=== PATIENT | female | born 1975 | race African-American/Black ===

== ENCOUNTER 2017-02-26 23:32 | Inpatient (IN) | payer OTHER, SELFPAY ==
[2017-02-27 00:51] LABS: ALT (SGPT) 26 U/L (8-55); AST (SGOT) 90 U/L (5-34); Albumin 3.2 g/dL (3.5-5.0); Alkaline Phosphatase 102 U/L (40-150); Anion Gap 15 mmol/L (10-20); BUN (Urea Nitrogen) 22 mg/dL (7.0-18.7); Bilirubin, Total 0.6 mg/dL (0.2-1.2); Calc. Creatinine Clearance 0 mL/min (70-130); Calcium 8.1 mg/dL (7.8-10.44); Carbon Dioxide 29 mmol/L (22-29); Chloride 96 mmol/L (98-107); Estimated GFR-MDRD 78; Globulin 4.1 g/dL (2.4-3.5); Glucose 229 mg/dL (70-105); Potassium 3.4 mmol/L (3.5-5.1); Protein, Total 7.3 g/dL (6.0-8.3); Sodium 137 mmol/L (136-145)
[2017-02-27 00:52] LABS: Hemoglobin 15.3 g/dL (12.0-16.0); Mean Corpuscular HGB CONC 32.5 g/dL (32.0-36.0); Mean Corpuscular Hemoglobin 31.6 pg (27.0-31.0); Mean Corpuscular Volume 97.1 fl (81.0-99.0); RBC Distribution Width 13.9 % (11.5-14.5); Red Blood Cell (RBC) Count 4.85 mill/uL (4.20-5.40); White Blood Cell (WBC) Count 6.6 thou/uL (4.8-10.8)
[2017-02-27 01:08] LABS: Band 5 % (5-11); Lymphocytes 22 % (21-51); MDiff Complete? YES; Mean Platelet Volume 9.7 fL (7.4-10.4); Monocytes 4 % (0-10); Neutrophil 69 % (42-75); Nucleated RBC 1 % (0); PLT Morphology Comment Appears Decreased; Platelet Count 103 thou/uL (130-400)
[2017-02-27] MEDS ORDERED: Acetaminophen 500 MG TAB ONE (02:02)
[2017-02-27 02:19] LABS: BHCG - Serum Negative (NEGATIVE); Pregs Control Background? CLEAR/WHITE (CLR/WHITE); Pregs Control Bar Appear? YES (CONTROL BAR)
[2017-02-27 02:41] LABS: CKMB 1.2 ng/mL (0-6.6)
[2017-02-27 02:55] LABS: Troponin I 0.367 ng/mL (< 0.028)
[2017-02-27] MEDS ORDERED: Azithromycin 500 MG in Sodium Chloride 0.9% 250 ML 250 ML IVPB SCH (03:30)
[2017-02-27] MEDS ORDERED: Lorazepam 2 MG/ML VIAL ONE (03:59)
[2017-02-27] MEDS ORDERED: Enoxaparin Sodium 60 MG/0.6 ML SYRINGE ONE (04:40)
[2017-02-27] MEDS ORDERED: Furosemide 40 MG/4 ML VIAL ONE (04:40)
[2017-02-27] MEDS ORDERED: Enoxaparin Sodium 80 MG/0.8 ML SYRINGE ONE (04:40)
[2017-02-27 06:30] LABS: Troponin I 0.293 ng/mL (< 0.028)
[2017-02-27] MEDS ORDERED: Milk Of Magnesia 30 ML UDCUP PO PRN (07:22)
[2017-02-27] MEDS ORDERED: Loratadine 10 MG TAB PO PRN (07:22)
[2017-02-27] MEDS ORDERED: Ondansetron HCl/PF 4 MG/2 ML Vial IVP PRN (07:22)
[2017-02-27] MEDS ORDERED: Diabetic Tussin 200 MG/10 ML UDCUP PO PRN (07:22)
[2017-02-27] MEDS ORDERED: Sodium Chloride 0.65% Nasal 44 ML BOT EA NARE PRN (07:22)
[2017-02-27] MEDS ORDERED: Chloraseptic Spray 180 ml Bottle PO PRN (07:22)
[2017-02-27] MEDS ORDERED: Eucerin (Mineral Oil/Petrolatum,White) 30 gm Jar TOP PRN (07:22)
[2017-02-27] MEDS ORDERED: Senokot 8.6 MG TAB PO PRN (07:22)
[2017-02-27] MEDS ORDERED: Mag-Al 1200 mg/1200 mg/30 ML UDCUP PO PRN (07:22)
[2017-02-27] MEDS ORDERED: Ondansetron ODT 4 MG TAB PO PRN (07:22)
[2017-02-27] MEDS ORDERED: Loperamide HCl 2 MG CAP PO PRN (07:22)
[2017-02-27] MEDS ORDERED: Artificial Tears 18 DROP/0.9 ML EA EYE PRN (07:22)
[2017-02-27 07:52] LABS: Hemoglobin A1c 5.7 % (4.0-6.0)
[2017-02-27] MEDS ORDERED: Potassium Chloride 20 MEQ TAB PO SCH (08:00)
[2017-02-27 08:03] LABS: Lactic Acid 1.9 mmol/L (0.5-2.2)
[2017-02-27 08:07] LABS: Cardiac Risk 5.2 (Less than 4.5); Magnesium 2.5 mg/dL (1.6-2.6)
--- NOTE | 2017-02-27 08:14 | RAD ---
PORTABLE CHEST: Date: 02-27-17 History: Neck pain, face pain, ear pain. Feeling tired. Cough. Comparison: 04-28-15 FINDINGS: There has been interval development of multifocal areas of alveolar opacity and consolidation within the midlung zones and at each lung base with findings greater on the right, likely related to multifo gallo pneumonia. Atypical pneumonia cannot be excluded. Cardiac silhouette is magnified by projection. Osseous structures are intact. IMPRESSION: 1. Findings likely related to multifocal pneumonia. An atypical pneumonia cannot be excluded. Follow up to resolution is recommended. POS: [facility]
[2017-02-27] MEDS ORDERED: Dextrose 50% Abboject 50 ML SYRINGE SLOW IVP PRN (08:34)
[2017-02-27] MEDS ORDERED: HumaLOG 300 UNITS/3 ML VIAL SC PRN (08:34)
[2017-02-27] MEDS ORDERED: Dextrose 5% in Water 1,000 ML IV PRN (08:34)
--- NOTE | 2017-02-27 09:31 | CT ---
PRELIMINARY REPORT/[facility]/EMERGENCY AFTER HOURS PROCEDURE: EXAM: CT Angiography Chest With Intravenous Contrast CLINICAL HISTORY: 41 years old, female; Signs and symptoms; Shortness of breath; Patient HX: SOB, R/O pe TECHNIQUE: Axial computed tomographic angiography images of the chest with intravenous contrast using pulmonary embolism protocol. CONTRAST: 100 mL of ISOVUE administered intravenously. COMPARISON: No relevant prior studies available. FINDINGS: Pulmonary arteries: No pulmonary embolism. Aorta: No acute findings. No thoracic aortic aneurysm. Lungs: Multifocal consolidation bilaterally and groundglass opacities with mild interstitial thickeni ng in the upper lobes Pleural space: No significant effusion. No pneumothorax. Heart: Moderate cardiomegaly. Coronary calcifications No significant pericardial effusion. No evidenc e of RV dysfunction. Bones/joints: No acute fracture. No dislocation. Soft tissues: Unremarkable. Lymph nodes: Mild hilar adenopathy. Question mild distal esophageal thickening IMPRESSION: No definite pulmonary embolism. Bilateral pneumonia Moderate cardiomegaly. Coronary artery disease Question mild distal esophagitis Thank you for allowing us to participate in the care of your patient. Dictated and Authenticated by: Aj Yepez MD 02/27/2017 5:23 AM Central Time ([place] & [place]) FINAL REPORT EMERGENCY AFTER HOURS CT ARTERIOGRAM CHEST WITH IV CONTRAST AND 3D MIP IMAGING: Date: 02/27/17 Time: 0432 hours HISTORY: Chest pain. Dyspnea. FINDINGS: No comparison. Findings agree with the preliminary report by Yannick. There is no CT evidence of pulmona ry embolus. Pulmonary vascular congestion with dense bilateral infiltrates are as detailed in the royce ginal report. Findings could be related to bilateral pneumonia. Clinical correlation regarding other signs and symptoms of an infectious process is required. POS: [facility]
[2017-02-27 09:39] LABS: Troponin I 0.194 ng/mL (< 0.028)
[2017-02-27] MEDS ORDERED: ISOVUE-370 76%-LOCM 1 ML ONE (09:43)
--- NOTE | 2017-02-27 10:47 | CON ---
DATE OF CONSULTATION: 02/27/2017 REASON FOR CONSULTATION: Elevated troponin. HISTORY OF PRESENT ILLNESS: Ms. Gaspar is a 41-year-old woman who has not been seen or evaluated b y Cardiology in the past. She recently presented with increased shortness of breath over a week. He r delores states he recently had a URI. She states she has had fevers and chills while at home. Her shortness of breath became such that she proceeded to the emergency room. CT scan did confirm likel y bilateral pneumonia. She is currently on BiPAP, required for desaturation. She denies any chest p ain or pressure. She has no previous history of underlying coronary disease. PAST MEDICAL HISTORY: Hypertension, acid reflux, morbid obesity. ALLERGIES: None. MEDICATIONS: None. SOCIAL HISTORY: Positive alcohol use. Positive tobacco use. She is not . REVIEW OF SYSTEMS: Ten point review of systems was reviewed and negative. PHYSICAL EXAMINATION: VITAL SIGNS: Blood pressure 120/70, pulse 85, respirations 20. GENERAL: Patient is a pleasant female who is in no acute distress. The patient appears her stated ag e. NEUROLOGIC: The patient is alert and oriented times 3 with no focal neurologic deficits. HEENT: Sclerae without icterus. Mouth has moist mucous membranes with normal pallor. NECK: No JVD. Carotid upstroke brisk. No bruits bilaterally. LUNGS: Currently on BiPAP. BACK: No scoliosis or kyphosis. CARDIAC: Regular rate and rhythm with normal S1 and S2. No S3 or S4 noted. No significant rubs, mur murs, thrills, or gallops noted throughout the precordium. PMI is not displaced. There is no parast ernal heave. ABDOMEN: Soft, nontender, nondistended. No peritoneal signs present. No hepatosplenomegaly. No abn ormal striae. EXTREMITIES: 2+ femoral and 2+ dorsalis pedis pulses. No cyanosis, clubbing, or edema. SKIN: No gross abnormalities. PERTINENT LABORATORY: White blood cell count 6.6, hemoglobin 15.3. Peak troponin 0.293 and is decreasing to 0.194. EKG: Normal sinus rhythm with no ST wave changes suggesting ischemia. IMPRESSION: 1. Elevated troponin. 2. Pneumonia. 3. Hypoxia. RECOMMENDATIONS: Elevated troponin, likely demand ischemia. I would recommend conservative approach . Continue with BiPAP. She will need to be placed on antibiotic therapy. Pulmonary has been involv ed. We will avoid beta tiffani therapy currently due to overlapping reactive airway disease.
[2017-02-27] MEDS ORDERED: Potassium Chloride 20 MEQ TAB ONE (10:48)
[2017-02-27] MEDS ORDERED: Aspirin 325 MG TAB ONE (10:48)
[2017-02-27] MEDS ORDERED: Famotidine/PF 20 mg/2ml Vial ONE (10:48)
[2017-02-27] MEDS ORDERED: VANCOMYCIN IVPB PRN (11:23)
[2017-02-27 12:40] VITALS: BMI 55.0
--- NOTE | 2017-02-27 12:45 | HP ---
PRIMARY CARE PHYSICIAN: City call admission. REASON FOR ADMISSION: Acute hypoxic respiratory failure, multifocal community-acquired pneumonia, se psis with acute organ dysfunction, demand ischemia of myocardium. HISTORY OF PRESENT ILLNESS: A 41-year-old female who has underlying history of morb id obesity as well as history of hypertension who was brought to the emergency room with multiple com plaints including cough, shortness of breath, ear pain, chest pain, shortness of breath, fever and ge neralized headache and body ache. The patient's is present at bedside who reports that he was sick and having upper respiratory infection. He recovered and after that the patient got symptoms. She was not improving very quickl y. She is having upper respiratory symptoms for about a week. For the last 2-3 days the patient is becoming more and more weak and she was having an increasing amount of cough, fever, chills, headache and body ache. The patient was subjectively feeling day by day worse and that is why last night the patient was brought to the emergency room. In the emergency room, initially she was tachycardic, tachypneic, and hypoxic. She was saturating 68 % on room air. This patient's chest x-ray showed multifocal infiltration. Subsequently the patient also had CT angio which was negative for pulmonary embolism. Her D-dimer was significantly evaluated . Her platelet count is low. She has bandemia and she has elevated troponins. She denies any angin a. She denies any night-time snoring. She denies any dyspnea on exertion. She denies any chest radha n on exertion. She denies any palpitations, syncope, dizziness. The patient's symptomatology is only for the last 7-10 days, before that, she was up to her normal. She never required any hospitalizations. In the emergency room, CT angio was negative for pulmonary embolism, but it showed multifocal infiltr ation. The patient required BiPAP and with BiPAP the patient was maintaining her saturation and she was more comfortable. We are admitting this patient in IMCU. REVIEW OF SYSTEMS: The following complete review of systems was negative, unless otherwise mentioned in the HPI or below: Constitutional: Weight loss or gain, ability to conduct usual activities. Skin: Rash, itching. Eyes: Double vision, pain. ENT/Mouth: Nose bleeding, neck stiffness, pain, tenderness. Cardiovascular: Palpitations, dyspnea on exertion, orthopnea. Respiratory: Shortness of breath, wheezing, cough, hemoptysis, fever or night sweats. Gastrointestinal: Poor appetite, abdominal pain, heartburn, nausea, vomiting, constipation, or diarrhea. Genitourinary: Urgency, frequency, dysuria, nocturia. Musculoskeletal: Pain, swelling. Neurologic/Psychiatric: Anxiety, depression. Allergy/Immunologic: Skin rash, bleeding tendency. Please see my HPI for pertinent positives and negatives. All other review of system reviewed and neg ative except as mentioned in the HPI. PAST MEDICAL HISTORY: Morbid obesity, hypertension. ALLERGIES: No known drug allergies. CURRENT HOME MEDICATIONS: Lisinopril 10 mg p.o. daily. PAST SURGICAL HISTORY: Reviewed and negative. PAST PSYCHIATRIC HISTORY: Reviewed and negative. SOCIAL HISTORY: The patient is and lives at home with her . She drinks alcohol 2-3 t imes per week. She smokes about half pack per day. She abuses marijuana periodically. She lives at home. She denies any other illicit drug abuse. FAMILY HISTORY: No strong family history of premature coronary artery disease, stroke or cancer, but her recently suffered from upper respiratory flu-like illness. EMERGENCY ROOM COURSE: The patient is given Levaquin 750 mg, Pepcid 20 mg, aspirin 324 mg and potass ium chloride 40 mEq, Lovenox 40 mg subcutaneous, Lasix 40 mg IV, azithromycin 500 mg, Ativan 1 mg, Ro cephin 1 gram, Tylenol 1 gram and DuoNeb therapy. PHYSICAL EXAMINATION: VITAL SIGNS: Most recently in the emergency room, blood pressure on admission 119/78, pulse 102, res piratory rate 24, temperature 97.7, saturation 68% on room air, weight 141.07 kilograms. GENERAL: The patient is currently alert, awake, on BiPAP, mild respiratory distress. HEENT: Head normocephalic, atraumatic. Eyes: Pupils round, reactive to light. Extraocular muscle intact. ENT: Oropharynx within normal limits. Moist mucous membranes. No oral lesions. No pharyn geal erythema, no exudate. NECK: Supple, no JVD, no thyromegaly, no carotid bruit. LUNGS: Air entry significantly reduced on both sides, scattered rales noted, end expiratory wheezing heard throughout the lungs. CARDIAC: S1, S2 regular, tachycardia, no murmur, no gallop, no rub. ABDOMEN: Morbid obesity present. Bowel sounds present. Nontender, nondistended. No organomegaly, no mass, no suprapubic tenderness. BACK: Unremarkable, no CVA tenderness. EXTREMITIES: Upper extremity passive movement of all joints are normal. Lower extremities: No eddie a. Good peripheral pulsation. No calf tenderness. Distal pulsation intact. SKIN: No skin rash. HEMATOLOGICAL: No lymphadenopathy. PSYCHIATRIC: Normal affect. NEUROLOGIC: Nonfocal examination. The patient moves all 4 limbs. Plantar bilateral flexor. SIGNIFICANT LABS: EKG showing sinus arrhythmia, slightly prolonged QT interval. Chest x-ray showing multifocal infiltration. CT angio consistent with multifocal infiltration, cardiomegaly, distal eso phagitis, no evidence of pulmonary embolism. CBC: WBC 6.6, hemoglobin 15.3, platelet 103, bandemia. D-dimer greater than 20. BMP: Sodium 137, potassium 3.4, chloride 96, carbon dioxide 29, anion gap 15, BUN 22, creatinine 0.9 6, glucose 229, calcium 8.1, hemoglobin A1c 5.7. AST 90, ALT 20, alkaline phosphatase 102, albumin 3.2. CK-MB 1.2, troponin 0.367 and then 0.293. Triglyceride 226, cholesterol 141, LDL 69, HDL 27. test negative. TSH 5.47, magnesium 2.5 . Influenza A and B negative. ASSESSMENT AND PLAN: 1. Acute respiratory failure with hypoxia. This patient was saturating 68% on room air. She was no t maintaining oxygen saturations with nasal cannula and nonrebreather in the emergency room, she requ ired BiPAP. Currently, she is maintaining saturation with BiPAP. We will continue to titrate and we an off BiPAP as needed. Meanwhile, we will continue with oxygen to keep saturation above 92%. Most reason for her hypoxic respiratory failure is underlying multifocal pneumonia. 2. Multifocal community-acquired pneumonia. The patient had problem with viral illness. At this po int her influenza screen is negative. Given her severity of illness we will treat her with Rocephin 2 gram IV daily, Levaquin 750 mg IV daily, and vancomycin as per pharmacy adjusted dose, Mucinex 600 mg p.o. twice daily, DuoNeb therapy every 4 hourly and Solu-Medrol 20 mg IV q.8h. We will monitor cl inical response. We will narrow down antibiotic spectrum in the next 24-48 hours. We will closely m onitor in CCU. Pulmonary is consulted. 3. Demand ischemia of myocardium. This patient has significantly abnormal troponin. She does not h ave any angina prior to this, most likely related with hypoxic respiratory failure and her stress fro m pneumonia. This patient already evaluated by Cardiology. We will obtain echocardiography. We joanne cked lipid profile which is at target. We will continue the aspirin 325 mg p.o. daily, current tropo wilmer elevation is related with demand ischemia. 4. Sepsis with acute organ dysfunction. This patient has bandemia, hypoxic respiratory failure and demand ischemia of myocardium and source of infection is pneumonia. We will closely monitor in IMCU. 5. Thrombocytopenia likely related with sepsis. We will continue with DVT prophylaxis with Lovenox and will repeat CBC tomorrow. If platelet count drops, then will consider discontinuing Lovenox ther apy. 6. Morbid obesity. Doubt this patient has any sleep apnea because she is not providing any sleep ap som history, but outpatient sleep study is advised and weight loss advised. 7. Elevated D-dimer, but negative CT angio for PE, most likely D-dimer is elevated related with a pa rt of sepsis. 8. History of hypertension. Currently, the patient is having low blood pressure and that is why we will hold on antihypertensive medication. 9. Hypokalemia. Magnesium checked which is normal, we will replace potassium chloride 40 mEq p.o. 1 time dose. 10. Hyperglycemia without previous history of diabetes. Hemoglobin A1c checked which is normal. Th e patient is advised weight loss. We will monitor Accu-Cheks while in hospital. 11. Deep venous thrombosis prophylaxis. Lovenox 40 mg subcu daily. 12. Gastrointestinal prophylaxis, Pepcid 20 mg IV b.i.d. 13. Distal esophagitis and gastroesophageal reflux disease. The patient will need Pepcid or Protoni x upon discharge. Dietary education given. Disposition plan based on clinical course. We are expecting patient's stay in hospital more than 2 m idnights. Plan of care discussed with the patient and family member at bedside in the emergency room .
[2017-02-27] MEDS ORDERED: FLU VACC QS2017-18 36 mo. & older 0.5 ML SYRINGE IM ONE (13:30)
[2017-02-27] MEDS: Acetaminophen 325 MG TAB PO PRN (15:04)
[2017-02-27] MEDS: Aspirin 325 MG TAB PO SCH (15:22)
[2017-02-27] MEDS: Famotidine/PF 20 mg/2ml Vial SLOW IVP SCH ×2 (15:22→20:26)
[2017-02-27] MEDS: Enoxaparin Sodium 40 MG/0.4 ML SYRINGE SC SCH (15:22)
[2017-02-28] MEDS: cefTRIAXone\\ROCEPHIN 2 GM in Sodium Chloride 0.9% 100 ML IVPB SCH (01:56)
--- NOTE | 2017-02-28 04:36 | CON ---
DATE OF CONSULTATION: 02/27/2017 HISTORY OF PRESENT ILLNESS: Sofia Gaspar is a 41-year-old female. She presented with cough, ch est congestion, shortness of breath, and subjective fever. Her illness started after her rec overed from his illnesses. She has been progressively getting worse for the last 3 days. By his history, he was in the room whe n I evaluated her. Apparently in the emergency department, she was placed on noninvasive ventilation. This has been wea ryan to a cannula after she got into the Intermediate Care Unit. I actually after reviewing her radio graph very surprising that she was able to wean to the nasal cannula. Given her size, I suspect she has sleep apnea, recommended the nursing staff that she sleep with Lobo eng. PAST MEDICAL HISTORY: Remarkable for hypertension. SOCIAL HISTORY: She is a smoker, half pack a day. She uses marijuana. She drinks several times a w makah. She lives at home with her . ALLERGIES: She reports no drug allergies. She is only on lisinopril prior to admission. REVIEW OF SYSTEMS: Ten point otherwise is negative. PHYSICAL EXAMINATION: GENERAL: She is actually lying on her right side, sleeping, and in no distress. She is afebrile. S he is awake. VITAL SIGNS: Heart rate was in the 70s, respiratory rate was in the 20, oximetry is 92 on 4 liters, blood pressure this evening is 153/103. HEENT: Pupils are equal. Sclerae are anicteric. NECK: Supple. Throat is clear. LUNGS: Remarkable for coarse rhonchi at both bases. HEART: Regular rhythm, no S3. S1 and S2 are distant because of her size. ABDOMEN: Soft and nontender. EXTREMITIES: Without clubbing, cyanosis, or edema. LABORATORY DATA: White count 6.6, hemoglobin 15.3, platelets 103,000. Sodium 137, potassium 3.4, ch loride 96, bicarbonate 29, BUN 22, creatinine 0.96. Troponins are 0.36 and 0.29. Albumin is 3.2. There is no urinalysis done. IMPRESSION: Community-acquired pneumonia, likely after a viral illness with both her and her have shared. Surprisingly, she was able to wean off noninvasive ventilation after I reviewed her radiograph. She does have patchy bilateral alveolar infiltrates. Hopefully, she will continue to improve on her curr ent antimicrobial therapy. We will be happy to follow with the other physicians caring for her, met with her and answered all of her 's questions. This was a 70-minute consult of which 50% was spent coordinating care on t he unit reviewing radiographs, reviewing available records, reviewing old records, and reviewing lab work.
[2017-02-28 05:18] LABS: ALT (SGPT) 18 U/L (8-55); AST (SGOT) 43 U/L (5-34); Albumin 3.1 g/dL (3.5-5.0); Alkaline Phosphatase 87 U/L (40-150); Anion Gap 13 mmol/L (10-20); BUN (Urea Nitrogen) 12 mg/dL (7.0-18.7); Bilirubin, Total 0.4 mg/dL (0.2-1.2); Calc. Creatinine Clearance 216 mL/min (70-130); Calcium 7.6 mg/dL (7.8-10.44); Carbon Dioxide 30 mmol/L (22-29); Chloride 97 mmol/L (98-107); Estimated GFR-MDRD Greater than 90; Globulin 3.7 g/dL (2.4-3.5); Glucose 199 mg/dL (70-105); Potassium 3.9 mmol/L (3.5-5.1); Protein, Total 6.8 g/dL (6.0-8.3); Sodium 136 mmol/L (136-145)
[2017-02-28 05:49] LABS: Band 4 % (5-11); Hemoglobin 13.8 g/dL (12.0-16.0); Lymphocytes 23 % (21-51); MDiff Complete? YES; Mean Corpuscular HGB CONC 32.4 g/dL (32.0-36.0); Mean Corpuscular Hemoglobin 31.8 pg (27.0-31.0); Mean Corpuscular Volume 98.1 fl (81.0-99.0); Monocytes 3 % (0-10); Neutrophil 70 % (42-75); PLT Morphology Comment Appears Decreased; Platelet Count 111 thou/uL (130-400); RBC Distribution Width 13.8 % (11.5-14.5); Red Blood Cell (RBC) Count 4.33 mill/uL (4.20-5.40); White Blood Cell (WBC) Count 4.2 thou/uL (4.8-10.8)
[2017-02-28] MEDS: Aspirin 325 MG TAB PO SCH (09:35)
[2017-02-28] MEDS: Famotidine/PF 20 mg/2ml Vial SLOW IVP SCH ×2 (09:35→21:05)
[2017-02-28] MEDS: Enoxaparin Sodium 40 MG/0.4 ML SYRINGE SC SCH (09:35)
[2017-02-28] MEDS ORDERED: hydrALAZINE 25 MG TAB PO PRN (11:24)
--- NOTE | 2017-02-28 11:33 | PDOC.PN ---
- Subjective Encounter Start Date: 02/28/17 Encounter Start Time: 11:32 Ms. Gaspar was seen today in follow-up of Pneumonia. she says she is breathing a little better, but still has chest pain when she breathes, and gets extremely fatigued when minimal activity. - Objective Resuscitation Status: Resuscitation Status FULL:Full Resuscitation MAR Reviewed: Yes Vital Signs & Weight: Vital Signs (12 hours) Temp Pulse Resp BP BP Pulse Ox 02/28/17 11:00 98.2 F 82 24 H 142/107 H 93 L 02/28/17 08:46 97 02/28/17 08:44 75 21 H 99 02/28/17 08:00 98.0 F 75 21 H 02/28/17 07:45 97.4 F L 73 18 144/101 H 92 L 02/28/17 03:30 98.0 F 87 25 H 146/105 H 96 02/28/17 02:22 63 02/27/17 23:40 97.0 F L 65 18 142/101 H 92 L Weight Weight 305 lb 8 oz I&O: 02/27/17 02/28/17 03/01/17 06:59 06:59 06:59 Intake Total 2620 Output Total 450 Balance 2170 Result Diagrams: 02/28/17 03:50 02/28/17 03:50 Additional Labs: Accuchecks 02/28/17 02/28/17 02/27/17 10:35 06:22 20:27 POC Glucose 212 H 174 H 186 H 02/27/17 16:56 POC Glucose 153 H Phys Exam - Physical Examination HEENT: PERRLA + rales bilaterally Cardiovascular: RRR, no significant murmur, no rub Gastrointestinal: soft, non-tender, positive bowel sounds Musculoskeletal: no edema Dx/Plan (1) Community acquired bacterial pneumonia Code(s): J15.9 - UNSPECIFIED BACTERIAL PNEUMONIA Status: Acute (2) Hypertension Code(s): I10 - ESSENTIAL (PRIMARY) HYPERTENSION Status: Acute (3) Obesity, morbid, BMI 50 or higher Code(s): E66.01 - MORBID (SEVERE) OBESITY DUE TO EXCESS CALORIES Status: Acute - Plan * Pneumonia- she has had some improvement overnight * Continue IV antibiotics- these can likely be de-escalated soon * HTN- - not optimally controlled -will re-start Lisinopril-HCT- and will add Hydrala RN. * Can reduce steroid dose * Elevated blood glucose- ? related to steroids- she will need outpatient screen for diabetes once she is stable
[2017-02-28] MEDS: Lisinopril/Hydrochlorothiazide 20 mg/12.5 mg Tablet PO SCH (12:57)
[2017-02-28] MEDS: HumaLOG 300 UNITS/3 ML VIAL SC PRN (12:58)
[2017-02-28] MEDS: hydrALAZINE 20 MG/ML VIAL SLOW IVP PRN ×2 (17:08→22:34)
--- NOTE | 2017-02-28 19:11 | PRG ---
DATE OF SERVICE: 02/28/2017 SUBJECTIVE: Ms. Gaspar is doing well. She is off BiPAP. She continues to have shortness of breat h, but has improved first on 02/27/2017. OBJECTIVE: LUNGS: Rhonchi and rales bilaterally. CARDIAC: Regular rate and rhythm. ABDOMEN: Soft, nontender, nondistended. She is obese. EXTREMITIES: No edema. IMPRESSION: 1. Elevated troponin. 2. Mild cardiomyopathy. 3. Bilateral pneumonia. RECOMMENDATIONS: Ms. Gaspar appears stable. Her respiratory status is improved. Continue antibio tic therapy and respiratory support. Her LVEF is lower limits of normal and likely related to a rece nt pneumonia. Her elevated troponin is likely demand ischemia. We would not recommend any further t herapy or treatment.
--- NOTE | 2017-02-28 21:56 | PRG ---
DATE OF SERVICE: 02/28/2017 SUBJECTIVE: Sofia Gaspar did well overnight, she enjoyed sleeping with theBiPAP. OBJECTIVE: VITAL SIGNS: Blood pressure this evening is 155/89, respiratory rate 22, oximetry is 91 on 5 liters, heart rates in 60. She is afebrile. LUNGS: Remarkable for crackles at both bases today. HEART: Regular rhythm. ABDOMEN: Soft. LABORATORY DATA: White count 4.2, hemoglobin 13.8, platelets 111,000. Sodium 136, potassium 3.9, chloride 97, bicarb 30, BUN 12, creatinine 0.77, glucose 199. IMPRESSION: 1. Community-acquired pneumonia, severe, but with rapid clinical improvement after presenting with impending respiratory failure, treated with BiPAP, feel she should continue with BiPAP at night for presumed sleep apnea. 2. Morbid obesity. 3. Diabetes. 4. Elevated liver enzymes that are mild, likely secondary to steatohepatitis. 5. Hypoalbuminemia. Urinalysis probably needs to be done to rule out significant proteinuria. She is stable to move out of intermediate care unit in my opinion. She is doing so well, she was able to yell at somebody on the cellphone for approximately 5 minutes. The nursing staff had to close the door of the room as it was disrupting everything on the B end of the unit. She was clearly not short of breath while she was yelling at whoever she was talking to. GERMAINE
[2017-02-28] MEDS: Acetaminophen 325 MG TAB PO PRN (22:35)
[2017-03-01] MEDS: cefTRIAXone\\ROCEPHIN 2 GM in Sodium Chloride 0.9% 100 ML IVPB SCH (03:20)
[2017-03-01 04:49] LABS: Anion Gap 14 mmol/L (10-20); BUN (Urea Nitrogen) 11 mg/dL (7.0-18.7); Calc. Creatinine Clearance 204 mL/min (70-130); Calcium 8.3 mg/dL (7.8-10.44); Carbon Dioxide 29 mmol/L (22-29); Chloride 97 mmol/L (98-107); Estimated GFR-MDRD Greater than 90; Glucose 165 mg/dL (70-105); Sodium 137 mmol/L (136-145)
[2017-03-01 04:56] LABS: Band 3 % (5-11); Hemoglobin 14.4 g/dL (12.0-16.0); Lymphocytes 26 % (21-51); MDiff Complete? YES; Mean Corpuscular HGB CONC 32.3 g/dL (32.0-36.0); Mean Corpuscular Hemoglobin 31.5 pg (27.0-31.0); Mean Corpuscular Volume 97.3 fl (81.0-99.0); Metamyelocyte 3 % (0-0); Monocytes 7 % (0-10); Neutrophil 61 % (42-75); PLT Morphology Comment Appears Adequate; Platelet Count 142 thou/uL (130-400); RBC Distribution Width 13.8 % (11.5-14.5); Red Blood Cell (RBC) Count 4.58 mill/uL (4.20-5.40); White Blood Cell (WBC) Count 5.4 thou/uL (4.8-10.8)
[2017-03-01] MEDS: Lisinopril/Hydrochlorothiazide 20 mg/12.5 mg Tablet PO SCH (08:26)
[2017-03-01] MEDS: Famotidine/PF 20 mg/2ml Vial SLOW IVP SCH (08:26)
[2017-03-01] MEDS: Aspirin 325 MG TAB PO SCH (08:26)
[2017-03-01] MEDS: Enoxaparin Sodium 40 MG/0.4 ML SYRINGE SC SCH (08:27)
[2017-03-01] MEDS: HumaLOG 300 UNITS/3 ML VIAL SC PRN (16:43)
--- NOTE | 2017-03-01 17:14 | PRG ---
DATE OF SERVICE: 03/01/2017 SUBJECTIV: Sofia Gaspar is feeling fine. She has nasal cannula oxygen. She denies shortness o f breath. OBJECTIVE: VITAL SIGNS: Afebrile, heart rate 80, respiratory rate is 18, oximetry is 97 on 3.5 liters, blood pr essure 155/82. She likes sleeping with CPAP. LUNGS: Clear. HEART: Regular rhythm. ABDOMEN: Soft. IMPRESSION: Community-acquired pneumonia, bilateral. White count today is 5.4, hemoglobin 14.4, michelle telets 142,000. Sodium 137, potassium 3, chloride 97, bicarbonate 29, BUN 11, creatinine 0.8. I felt there is no reason to continue doing daily labs. She is clinically improving. She will need to follow up with me in a month for chest radiograph. At some point in time, she needs outpatient ev aluation for sleep apnea. I also tried to simplify her antibiotics at this point.
--- NOTE | 2017-03-01 18:51 | PDOC.PN ---
- Subjective Encounter Start Date: 03/01/17 Encounter Start Time: 18:49 Subjective: Seen and examined feeling better - Objective Resuscitation Status: Resuscitation Status FULL:Full Resuscitation Vital Signs & Weight: Vital Signs (12 hours) Temp Pulse Resp BP BP Pulse Ox 03/01/17 16:00 97.4 F L 96 20 151/96 H 98 03/01/17 14:29 80 18 97 03/01/17 11:58 97.5 F L 79 22 H 135/82 97 03/01/17 10:18 102 H 24 H 96 03/01/17 08:26 57 L 160/88 H 03/01/17 08:00 97.7 F 57 L 16 96 Weight Weight 305 lb 8 oz I&O: 02/28/17 03/01/17 03/02/17 06:59 06:59 06:59 Intake Total 2620 1130 Output Total 450 750 Balance 2170 380 Result Diagrams: 03/01/17 03:53 03/01/17 03:53 Additional Labs: Accuchecks 03/01/17 03/01/17 03/01/17 16:13 11:30 04:49 POC Glucose 236 H 189 H 174 H Phys Exam - Physical Examination Constitutional: NAD HEENT: PERRLA, moist MMs, sclera anicteric, TM's clear Neck: no nodes, no JVD, supple, full ROM Respiratory: no wheezing, no rales, no rhonchi, clear to auscultation bilateral Cardiovascular: RRR, no significant murmur, no rub Gastrointestinal: soft, non-tender, no distention, positive bowel sounds Musculoskeletal: no edema, pulses present Dx/Plan (1) Community acquired bacterial pneumonia Code(s): J15.9 - UNSPECIFIED BACTERIAL PNEUMONIA Status: Acute (2) Hypertension Code(s): I10 - ESSENTIAL (PRIMARY) HYPERTENSION Status: Acute (3) Obesity, morbid, BMI 50 or higher Code(s): E66.01 - MORBID (SEVERE) OBESITY DUE TO EXCESS CALORIES Status: Acute - Plan continue antibiotics, PT/OT, health social work professor, respiratory therapy Transition to oral sterods and antibiotics -: Dispo planning * .
[2017-03-02] MEDS: Lisinopril/Hydrochlorothiazide 20 mg/12.5 mg Tablet PO SCH (08:20)
[2017-03-02] MEDS: predniSONE 20 MG TAB PO SCH (08:21)
[2017-03-02] MEDS: Enoxaparin Sodium 40 MG/0.4 ML SYRINGE SC SCH (08:21)
[2017-03-02] MEDS: Aspirin 325 MG TAB PO SCH (08:21)
--- NOTE | 2017-03-02 11:26 | PRG ---
DATE OF SERVICE: 03/02/2017 SUBJECTIVE: Ms. Gaspar says she is feeling better. She has been out of bed. I have encouraged he r to start walking today. She made physical therapy walk with her given that she does have some size and weakness issues. PHYSICAL EXAMINATION: VITAL SIGNS: She is not febrile. Blood pressure 141/91, respiratory rate is in the 20s, oximetry is 98% on 3.5. LUNGS: Remarkable for diffuse crackles. HEART: Regular rhythm. ABDOMEN: Soft. IMPRESSION: 1. Bilateral community-acquired pneumonia 2. Sleep apnea, most likely. 3. Transient respiratory failure requiring noninvasive ventilation. 4. Diabetes. PLAN: Physical therapy needs to be attempting to wean her off of oxygen. Hopefully, she will be a c andidate for discharge, here within a few days.
[2017-03-02] MEDS: HumaLOG 300 UNITS/3 ML VIAL SC PRN (16:35)
--- NOTE | 2017-03-02 17:02 | PDOC.PN ---
- Subjective Encounter Start Date: 03/02/17 Encounter Start Time: 17:00 Subjective: seen and examined no new complaint - Objective Resuscitation Status: Resuscitation Status FULL:Full Resuscitation Vital Signs & Weight: Vital Signs (12 hours) Temp Pulse Pulse Resp BP BP Pulse Ox 03/02/17 15:35 97.5 F L 75 28 H 151/96 H 95 03/02/17 14:20 115 H 03/02/17 11:27 97.9 F 74 24 H 150/103 H 99 03/02/17 11:04 90 16 99 03/02/17 08:20 75 141/91 H 03/02/17 08:00 97.9 F 74 24 H 98 03/02/17 07:18 97.7 F 75 28 H 141/91 H 98 03/02/17 06:53 66 16 99 Pulse Ox Pulse Ox 03/02/17 15:35 03/02/17 14:20 93 L 83 L 03/02/17 11:27 03/02/17 11:04 03/02/17 08:20 03/02/17 08:00 03/02/17 07:18 03/02/17 06:53 Weight Weight 305 lb 8 oz I&O: 03/01/17 03/02/17 03/03/17 06:59 06:59 06:59 Intake Total 1130 Output Total 750 Balance 380 Result Diagrams: 03/01/17 03:53 03/01/17 03:53 Additional Labs: Accuchecks 03/02/17 03/02/17 03/02/17 15:44 11:14 04:41 POC Glucose 324 H 159 H 135 H 03/01/17 20:19 POC Glucose 256 H Phys Exam - Physical Examination Constitutional: NAD HEENT: PERRLA, moist MMs, sclera anicteric, TM's clear Neck: no nodes, no JVD, supple, full ROM Respiratory: no wheezing, no rales, no rhonchi, clear to auscultation bilateral Cardiovascular: RRR, no significant murmur, no rub Dx/Plan (1) Community acquired bacterial pneumonia Code(s): J15.9 - UNSPECIFIED BACTERIAL PNEUMONIA Status: Acute (2) Hypertension Code(s): I10 - ESSENTIAL (PRIMARY) HYPERTENSION Status: Acute (3) Obesity, morbid, BMI 50 or higher Code(s): E66.01 - MORBID (SEVERE) OBESITY DUE TO EXCESS CALORIES Status: Acute - Plan plan discussed w/ family, continue antibiotics, PT/OT, healthcare social worker, respiratory therapy, incentive spirometry Still requiring oxygen supplementation -: Wean down oxygen as tolerated -: D/c planning ? next 24 to 48hrs * .
[2017-03-03] MEDS: predniSONE 20 MG TAB PO SCH (08:10)
[2017-03-03] MEDS: Lisinopril/Hydrochlorothiazide 20 mg/12.5 mg Tablet PO SCH (08:10)
[2017-03-03] MEDS: Enoxaparin Sodium 40 MG/0.4 ML SYRINGE SC SCH (08:10)
[2017-03-03] MEDS: Aspirin 325 MG TAB PO SCH (08:10)
[2017-03-03 11:35] VITALS: BP 126/82; TEMP 98
--- NOTE | 2017-03-03 11:52 | PDOC.PN ---
- Subjective Encounter Start Date: 03/03/17 Encounter Start Time: 11:50 Subjective: Seen and examined feeling better but still dependent on oxygen - Objective Resuscitation Status: Resuscitation Status FULL:Full Resuscitation Vital Signs & Weight: Vital Signs (12 hours) Temp Pulse Resp BP BP BP Pulse Ox 03/03/17 11:34 98 F 88 24 H 126/82 92 L 03/03/17 09:05 98 03/03/17 08:26 96 03/03/17 08:23 79 16 03/03/17 08:10 86 146/101 H 03/03/17 08:00 97.8 F 87 16 96 03/03/17 07:29 97.8 F 86 24 H 146/101 H 96 03/03/17 04:00 98.1 F 88 20 142/89 H 97 03/03/17 00:00 97.9 F 79 20 123/73 94 L Weight Weight 305 lb 8 oz Result Diagrams: 03/01/17 03:53 03/01/17 03:53 Additional Labs: Accuchecks 03/03/17 03/02/17 03/02/17 05:16 20:35 15:44 POC Glucose 117 H 182 H 324 H Phys Exam - Physical Examination Constitutional: NAD HEENT: PERRLA, moist MMs, sclera anicteric, TM's clear Neck: no nodes, no JVD, supple, full ROM Respiratory: no wheezing Cardiovascular: RRR, no significant murmur, no rub Gastrointestinal: soft, non-tender, no distention, positive bowel sounds Musculoskeletal: no edema, pulses present Dx/Plan (1) Community acquired bacterial pneumonia Code(s): J15.9 - UNSPECIFIED BACTERIAL PNEUMONIA Status: Acute (2) Hypertension Code(s): I10 - ESSENTIAL (PRIMARY) HYPERTENSION Status: Acute (3) Obesity, morbid, BMI 50 or higher Code(s): E66.01 - MORBID (SEVERE) OBESITY DUE TO EXCESS CALORIES Status: Acute - Plan continue antibiotics, PT/OT, older adult social work specialist, respiratory therapy IV lasix 40 x1 today -: Wean off oxygen supplementation and plan towards discharge * .
[2017-03-03] MEDS ORDERED: Furosemide 40 MG/4 ML VIAL SLOW IVP SCH (12:00)
--- NOTE | 2017-03-03 13:55 | PRG ---
DATE OF SERVICE: 03/03/2017 SUBJECTIVE: She is better, less cough, less shortness of breath, eager to go home. OBJECTIVE: VITAL SIGNS: Temperature is 98, sats 90%, blood pressure 136/82. CHEST: With decreased breath sounds, no wheezing. CARDIAC: Normal S1, S2. IMPRESSION: 1. Pneumonia, much improved. 2. Respiratory failure, resolved. PLAN: From a pulmonary standpoint, she can be discharged home anytime. She can follow up with Dr. Genevieve barker in 2 weeks.
--- NOTE | 2017-03-06 09:06 | DIS ---
For the details of the history and physical and the consultative notes, please refer to the dictation s on record. SUMMARY: This is a 41-year-old female patient who presented here with respiratory failure. The petrona ent noted to have severe hypoxia with O2 sat of 68% on presentation in the context of multifocal pneu monia, sepsis. The patient was admitted and initiated on BiPAP, followed actively by the Pulmonary a nd Critical Care Service. The patient was also noted to have evidence of elevated troponin for which Cardiology was also consulted. The patient was managed conservatively and continued to maintain dahlia tained clinical improvement. PERTINENT DIAGNOSIS MANAGED DURING THIS HOSPITALIZATION: Include: 1. Acute hypoxic respiratory failure in the context of problem #2. 2. Multifocal pneumonia. 3. Non-ST elevation myocardial infarction, likely demand ischemia. 4. Sepsis. 5. Thrombocytopenia in the context of sepsis. 6. Morbid obesity. MEDICATIONS: The patient has maintained sustained clinical improvement and was subsequently discharg ed on 03/03/2017 on the following medications: Aspirin 81 mg, hydralazine 25 mg p.o. t.i.d., Levaqui n 500 mg p.o. daily, Prinzide 20/12.5 p.o. daily, prednisone 20 mg daily to be tapered off, ranitidin e 150 mg p.o. b.i.d. DISCHARGE INSTRUCTIONS: 1. Follow up with the sintering press operator. 2. Follow up with the primary care physician. 3. Stay compliant with medication. 4. Represent here in case of any relapse or deterioration in clinical condition. Total time spent including the [id number] encounter 32 minutes. For the details of the physical fi ndings, refer to the note in the progress.
--- NOTE | 2017-03-17 17:49 | EKG ---
Test Reason : Blood Pressure : / mmHG Vent. Rate : 069 BPM Atrial Rate : 069 BPM P-R Int : 164 ms QRS Dur : 092 ms QT Int : 452 ms P-R-T Axes : 048 026 029 degrees QTc Int : 484 ms Normal sinus rhythm with sinus arrhythmia Prolonged QT Abnormal ECG Confirmed by JYOTHI VALLE D.O. ([id number]), editor managing newspaper LOGAN COLIN ([id number] on 03/17/2017 5:47:55 PM Referred By: Confirmed By:JYOTHI VALLE D.O.
== END 2017-03-03 14:56 | disposition home or self-care (01) | DRG 871 ==
LOC: ERS 23:32 → ERHOLD 02-27 04:00 → IMCU/EMU 02-27 11:44 → T4-A 02-28 19:15
PROVIDERS: ADMIT Family Medicine; ATTEND Family Medicine
PROC: 5A09457 Assistance with Respiratory Ventilation, 24-96 Consecutive Hours, Continuous Positive Airway Pressure (ICD-10-PCS; principal; 2017-02-27)
DX: A41.9 Sepsis, unspecified organism (principal); J18.9 Pneumonia, unspecified organism; J96.01 Acute respiratory failure with hypoxia; D69.59 Other secondary thrombocytopenia; I24.8 Other forms of acute ischemic heart disease; E66.01 Morbid (severe) obesity due to excess calories; E88.09 Other disorders of plasma-protein metabolism, not elsewhere classified; I42.9 Cardiomyopathy, unspecified; Z68.43 Body mass index [BMI] 50.0-59.9, adult; K75.81 Nonalcoholic steatohepatitis (NASH); R65.20 Severe sepsis without septic shock; I10 Essential (primary) hypertension; E87.6 Hypokalemia; K21.0 Gastro-esophageal reflux disease with esophagitis; G47.30 Sleep apnea, unspecified; F12.10 Cannabis abuse, uncomplicated; R73.9 Hyperglycemia, unspecified
CPT/HCPCS: 36415; 36416; 71045; 71275; 80048; 80053; 80061; 82553; 83036; 83605; 83735; 83880; 84443; 84484; 84703; 85025; 85379; 87040; 87633; 87798; 93005; 93306; 94640; 94660; 96365; 96367; 96372; 96374; 96375; 99406; G8978-GP-CI; G8979-GP-CI; G8980-GP-CI; J0360; J0456; J0696; J1650; J1940; J1956; J2060; J2920; J3370; J7050; J7506; J7620; S0028

== ENCOUNTER 2017-05-01 10:13 | Observation (INO) | payer SELFPAY ==
--- NOTE | 2017-05-01 12:07 | RAD ---
CHEST TWO VIEWS: History: Cough, congestion. FINDINGS: Cardiac silhouette is unremarkable. Pulmonary vasculature is upper limits of normal. Mediastinum is m idline. There is no confluent airspace consolidation, pneumothorax, or pleural fluid. IMPRESSION: Borderline pulmonary vascular congestion. POS: [facility]
[2017-05-01 13:16] LABS: Hemoglobin 14.8 g/dL (12.0-16.0); Mean Corpuscular HGB CONC 32.5 g/dL (32.0-36.0); Mean Corpuscular Hemoglobin 31.7 pg (27.0-31.0); Mean Corpuscular Volume 97.4 fl (81.0-99.0); Mean Platelet Volume 7.9 fL (7.4-10.4); Platelet Count 196 thou/uL (130-400); RBC Distribution Width 13.7 % (11.5-14.5); Red Blood Cell (RBC) Count 4.69 mill/uL (4.20-5.40)
[2017-05-01 13:32] LABS: Band 12 % (5-11); Eosinophils 3 % (0-10); Lymphocytes 22 % (21-51); MDiff Complete? YES; Monocytes 6 % (0-10); Neutrophil 53 % (42-75); PLT Morphology Comment Appears Adequate; RBC Morphology Normal; Reactive Lymphocytes 4 % (0-10); White Blood Cell (WBC) Count 3.4 thou/uL (4.8-10.8)
[2017-05-01 13:44] LABS: ALT (SGPT) 11 U/L (8-55); AST (SGOT) 20 U/L (5-34); Albumin 4.2 g/dL (3.5-5.0); Alkaline Phosphatase 86 U/L (40-150); Anion Gap 14 mmol/L (10-20); BUN (Urea Nitrogen) 9 mg/dL (7.0-18.7); Bilirubin, Total 0.5 mg/dL (0.2-1.2); Calc. Creatinine Clearance 0 mL/min (70-130); Calcium 9.2 mg/dL (7.8-10.44); Carbon Dioxide 21 mmol/L (22-29); Chloride 104 mmol/L (98-107); Estimated GFR-MDRD Greater than 90; Globulin 3.8 g/dL (2.4-3.5); Glucose 88 mg/dL (70-105); Potassium 3.8 mmol/L (3.5-5.1); Sodium 135 mmol/L (136-145)
[2017-05-01] MEDS ORDERED: Acetaminophen 500 MG TAB ONE (15:18)
[2017-05-01] MEDS ORDERED: HYDROcodone/Acetaminophen 5/325 mg Tablet PO PRN (17:16)
[2017-05-01] MEDS ORDERED: Enoxaparin Sodium 40 MG/0.4 ML SYRINGE SC SCH (17:16)
[2017-05-01] MEDS ORDERED: Acetaminophen 325 MG TAB PO PRN (17:16)
[2017-05-01] MEDS ORDERED: Ondansetron ODT 4 MG TAB PO PRN (17:16)
[2017-05-01 17:28] VITALS: BMI 56.7
[2017-05-01] MEDS: Famotidine 20 MG TAB PO SCH (20:31)
--- NOTE | 2017-05-01 21:30 | HP ---
DATE OF ADMISSION: 05/01/2017 PRIMARY CARE PHYSICIAN: [facility] [place]. CHIEF COMPLAINT: Cough and shortness of breath. HISTORY OF PRESENT ILLNESS: Ms. Gaspar is a pleasant 41-year-old female with history of wh eezy, hypertension who has had a 1 week history of cough and congestion. She denies any real chest p ain or shortness of breath. Has had some throat pain from her coughing. Has some abdominal muscle p ain secondary to coughing. This has been going on for some time, so she presented to the emergency department for evaluation tobridgette dan. There, she was triaged. Laboratory evaluation was normal, however, when she got up to walk, she did desaturate down to 87% on room air and had a heart rate increased in the 120s-130s. Appeared to be s inus tachycardia. We were subsequently called for workup and evaluation. She had no wheezing, has had some sputum production with some blood tinge. Has had no refugio phlegm a nd no chest discomfort. Denies any fevers or chills or shaking rigors. No sweats. No history of heart problems or lung prob lems. She did ask her about her sleep habits. She is able to sleep on 1 pillow. She denies any known apne a episodes, but has been known to snore loudly on occasion. She lives at home with her [id number] . No other current complaints. PAST MEDICAL HISTORY: 1. Hypertension. 2. Severe obesity. HOME MEDICATIONS: Lisinopril 20 mg p.o. daily. PAST SURGICAL HISTORY: None. ALLERGIES: None. FAMILY HISTORY: Negative for clotting or bleeding disorder, no immune dysfunction. SOCIAL HISTORY: Known for marijuana use on occasion. No history of IV drug abuse. She does smoke a bout half pack of cigarettes per day. Only social alcohol. REVIEW OF SYSTEMS: A 10-point review of systems was performed, negative for all systems except state d as per HPI. PHYSICAL EXAMINATION: VITAL SIGNS: Temperature current 98.6, pulse 89, blood pressure 161/104, repeat 150/91, respiratory rate 20, satting 97% on room air. GENERAL: She is awake. She is alert. She is oriented x3. She is a pleasant, obese, -Americ an female, appears to be in no acute distress. HEENT: Normocephalic, atraumatic. Pupils equal, round, react to light bilaterally, mucous membranes are moist. She has no visible lesions. No thrush. NECK: Supple, without lymphadenopathy, JVD or thyromegaly. She has normal carotid upstrokes. There are no bruits. CHEST: Lungs are clear. She has no wheezes, no rales, no rhonchi. She has good air movement. Ther e is no prolonged expiratory phase and she has symmetrical chest excursion. CARDIOVASCULAR: She is tachycardic, irregular. After listening, she does land to her normal rate. She has a regular rhythm. Normal S1, S2. No S3, S4. No audible murmurs. ABDOMEN: Obese. I cannot palpate internal organs. She has no rebound, rigidity or guarding. She h as normoactive bowel sounds quadrant. EXTREMITIES: No cyanosis, clubbing with trace pedal edema. SKIN: Warm, moist, and well perfused. She has no rashes or lesions. MUSCULOSKELETAL: Normal to inspection. She has good range of motion. No joint inflammation or palp able effusions. NEUROLOGIC: Cranial nerves II-XII are grossly intact. She has normal speech pattern. She has no fo gallo deficits and 5/5 strength. LABORATORY DATA: Sodium 135, potassium 3.8, chloride 104, bicarb 21, BUN 9, creatinine 0.78, glucose 88 and calcium 9.2. Liver functions completely within normal limits. Her CBC showed a white count slightly low at 3.4. She has 53% granulocytosis and 12% bands. Hemoglobin 14.8, hematocrit of 45.7, platelet count 196,000. RADIOGRAPHIC STUDIES: A portable chest x-ray showed pulmonary vascular congestion. ASSESSMENT AND PLAN: 1. Acute bronchitis. We will start levofloxacin 500 mg daily. Repeat CBC in the morning. She is c urrently afebrile. Plan to treat her for a 5-day course. 2. Hypoxia: The patient became barely hypoxic and tachycardic with ambulation. Unsure if this just a low measurement or if she was truly hypoxic. No ABG was done. At this point, we will place her o n DuoNebs q.4 hours p.r.n., watch overnight with oximetry and/or use oxygen to keep her sats greater than 90%. 3. Severe obesity: Patient certainly could have a right-sided cor pulmonale. We will get a 2D echo cardiogram to assess the pulmonary vascular congestion, heart function, and I suspect she may have so me mild diastolic dysfunction. 4. Possible sleep apnea: Patient does snore loudly on occasion. She has not had any kind of formal sleep study, does not know if she was apneic or not. States she does not feel rested when she wakes up and does fall asleep easily during the day. Reassess her intracardiac pressures with echo. I wi ll place her in observation overnight. 5. Hypertension, essential: The patient is on lisinopril 20 a day. She has not taken this morning. We will continue her on lisinopril and monitor blood pressure.
[2017-05-01] MEDS ORDERED: Benzonatate 100 MG CAP PO PRN (21:39)
[2017-05-01] MEDS ORDERED: Guaifenesin DM 100-10/5 ML UDCUP PO PRN (21:41)
[2017-05-02 05:32] LABS: #Lymphocytes 1.5 thou/uL (1.20-3.40); #Monocytes 0.5 thou/uL (0.11-0.59); #Neutrophils 2.2 thou/uL (1.40-6.50); %Eosinophils 1.1 % (0.0-10.0); %Lymphocytes 34.7 % (21.0-51.0); %Monocytes 10.8 % (0.0-10.0); %Neutrophils 52.4 % (42.0-75.0); Hemoglobin 13.3 g/dL (12.0-16.0); Mean Corpuscular HGB CONC 33.6 g/dL (32.0-36.0); Mean Corpuscular Hemoglobin 32.2 pg (27.0-31.0); Mean Corpuscular Volume 95.8 fl (81.0-99.0); Mean Platelet Volume 8.2 fL (7.4-10.4); Platelet Count 203 thou/uL (130-400); RBC Distribution Width 13.5 % (11.5-14.5); Red Blood Cell (RBC) Count 4.14 mill/uL (4.20-5.40); White Blood Cell (WBC) Count 4.2 thou/uL (4.8-10.8)
[2017-05-02 05:47] LABS: Anion Gap 14 mmol/L (10-20); BUN (Urea Nitrogen) 9 mg/dL (7.0-18.7); Calc. Creatinine Clearance 208 mL/min (70-130); Calcium 8.8 mg/dL (7.8-10.44); Carbon Dioxide 21 mmol/L (22-29); Chloride 103 mmol/L (98-107); Estimated GFR-MDRD Greater than 90; Glucose 105 mg/dL (70-105); Magnesium 2.1 mg/dL (1.6-2.6); Potassium 3.7 mmol/L (3.5-5.1); Sodium 134 mmol/L (136-145)
[2017-05-02 07:35] LABS: CKMB 0.6 ng/mL (0-6.6); Troponin I Less than 0.010 ng/mL (< 0.028)
[2017-05-02 07:48] LABS: CKMB 0.6 ng/mL (0-6.6); Troponin I Less than 0.010 ng/mL (< 0.028)
[2017-05-02] MEDS: Famotidine 20 MG TAB PO SCH (08:21)
[2017-05-02] MEDS ORDERED: Enoxaparin Sodium 40 MG/0.4 ML SYRINGE SC SCH (09:00)
[2017-05-02] MEDS ORDERED: Lisinopril 20 MG TAB PO SCH (09:00)
[2017-05-02 11:28] VITALS: BP 150/73; TEMP 98.4
--- NOTE | 2017-05-02 14:21 | DIS ---
DATE OF ADMISSION: 05/01/2017 DATE OF DISCHARGE: 05/02/2017 PRIMARY CARE PHYSICIAN: [facility]. DISCHARGE DIAGNOSES: 1. Acute bronchitis. 2. Community-acquired pneumonia. 3. Hypoxemia, resolved. 4. Hypertension. 5. Severe obesity. 6. Gastroesophageal reflux disease. CONSULTATIONS: None. PROCEDURES: None. HISTORY AND PHYSICAL: Ms. Gaspar is a pleasant 41-year-old female, who had a several-day history o f cough, body aches, and presented to the emergency department for evaluation. There her workup was negative with normal labs, chest x-ray showed a possible perihilar infiltrate, a nd subsequently, when getting up to walk around for oxygen test, she became tachycardic and dropped h er oxygen sats to 87%. We were subsequently called for admit. HOSPITAL COURSE: The patient was seen and examined by me in the emergency department. She was place d on observation, started on oral levofloxacin, p.r.n. nebulizer treatments, and oxygen as needed for sats to maintain sats greater than 90%. On arrival to the floor, she is on room air. She was maintained on room air the entire hospital stay . Overnight, she had no coughing paroxysms and responded well to Tessalon. She had no fevers, and t his morning, her labs were normal. She did undergo ambulatory walking test for oxygen saturations that showed her saturations to drop in to the low 90s. She had 1 episode where it dropped to 84, but immediately came back up, likely facti tial. She was stable for discharge with outpatient followup. PHYSICAL EXAMINATION: The patient was seen and examined on the day of discharge. Discharge plan and disposition were discussed with the patient [id number] at the bedside. DISCHARGE MEDICATIONS: 1. Zantac 150 mg p.o. b.i.d. 2. Tessalon Perles 100 mg p.o. q.8 hours p.r.n., prescription for 60 tablets, no refills sent. 3. Robitussin-DM as needed. 4. Levaquin 500 mg p.o. daily, 6 tablets sent to complete a course. 5. Lisinopril/HCTZ 20/12.5 one tablet daily. DISCHARGE CONDITION: Stable. DISPOSITION: To be discharged home via private vehicle. DISCHARGE DIET: Heart healthy recommended. Exercise and weight loss recommended. DISCHARGE ACTIVITY: Per cardiopulmonary limits.
--- NOTE | 2017-05-26 20:41 | EKG ---
Test Reason : Blood Pressure : / mmHG Vent. Rate : 098 BPM Atrial Rate : 098 BPM P-R Int : 172 ms QRS Dur : 080 ms QT Int : 372 ms P-R-T Axes : 055 053 028 degrees QTc Int : 474 ms Normal sinus rhythm Possible Left atrial enlargement Borderline ECG Confirmed by TERRY RIZVI ([id number]), subeditor LOGAN COLIN ([id number]) on 05/26/2017 8:40:53 PM Referred By: Confirmed By:TERRY RIZVI
== END 2017-05-02 13:22 | disposition home or self-care (01) ==
LOC: ERS 10:13 → 2SW 15:06
PROVIDERS: ADMIT Internal Medicine Infectious Disease; ATTEND Internal Medicine Infectious Disease
DX: J20.9 Acute bronchitis, unspecified (principal); J18.9 Pneumonia, unspecified organism; R09.02 Hypoxemia; I10 Essential (primary) hypertension; F12.90 Cannabis use, unspecified, uncomplicated; F17.210 Nicotine dependence, cigarettes, uncomplicated; K21.9 Gastro-esophageal reflux disease without esophagitis; M79.1 Myalgia; E66.01 Morbid (severe) obesity due to excess calories; Z68.43 Body mass index [BMI] 50.0-59.9, adult; Z79.899 Other long term (current) drug therapy
CPT/HCPCS: 36415; 71046; 80048; 80053; 82553; 83735; 83880; 84484; 85025; 93005; 93306; 94640; 96372; G0378; J1650; J7620